=== PATIENT | male | born 1960 | race Caucasian/White ===

== ENCOUNTER → 2017-04-29 | Outpatient (CLI) | payer OTHER ==
--- NOTE | 2017-04-29 14:38 | NM ---
EXAMINATION TYPE: NM bone 3 phase DATE OF EXAM: 04/29/2017 COMPARISON: NONE HISTORY: Stress fracture metatarsal left foot, M54.375D Triple phase bone scintigraphy was performed following the injection [id number] mCi Tc 99m MDP. Immedi ate images and 4 hours post injection images acquired. FINDINGS: Blood flow shows symmetric uptake with the exception of some mild increased uptake in the region of t he midfoot on the left. Blood pool images show some uptake along the lateral aspect of the left foot. Delayed imaging shows abnormal uptake within the mid foot bilaterally within the tarsal bones as wel l as likely within the calcaneus posteriorly on the left. There is some uptake along the region of th e fifth metatarsal on the left on delayed imaging. IMPRESSION: Suspect underlying osteoarthritic changes. Findings could be due to proximal fifth metatarsal fractur e, plantar calcaneal spur or plantar fasciitis. Recommend plain film correlation, MRI may be of benef it.
== END | disposition home or self-care (01) ==
LOC: RADNMMAIN 07:10
PROVIDERS: ATTEND Orthopaedic Surgery
DX: M84.375D Stress fracture, left foot, subsequent encounter for fracture with routine healing (principal)
CPT/HCPCS: 78315; A9503